=== PATIENT | male | born 1990 | race Caucasian/White ===

== ENCOUNTER 2016-12-10 03:56 | Emergency (ER) | payer OTHER | END 2016-12-10 05:40 | disposition home or self-care (01) | LOC: FER 03:56 | DX: S60.042A Contusion of left ring finger without damage to nail, initial encounter (principal); Z88.1 Allergy status to other antibiotic agents; W05.0XXA Fall from non-moving wheelchair, initial encounter; Y92.009 Unspecified place in unspecified non-institutional (private) residence as the place of occurrence of the external cause | CPT/HCPCS: 73130; 99283 ==